=== PATIENT | female | born 1980 | race Native Hawaiian/Other Pacific Islander ===

== ENCOUNTER 2020-12-22 08:50 | Outpatient (CLI) | payer BC | END 2020-12-22 19:21 | disposition home or self-care (01) | LOC: RAD 08:50 | PROVIDERS: ATTEND Nurse Practitioner Family | DX: M79.605 Pain in left leg (principal) ==

== ENCOUNTER 2022-08-29 08:19 | Outpatient (CLI) | payer BC | END 2022-08-29 18:56 | disposition home or self-care (01) | LOC: US 08:19 | PROVIDERS: ATTEND Nurse Practitioner Family | DX: E78.49 Other hyperlipidemia (principal); R53.83 Other fatigue; R74.8 Abnormal levels of other serum enzymes ==

== ENCOUNTER 2022-11-22 10:29 | Outpatient (CLI) | payer BC | END 2022-11-22 19:02 | disposition home or self-care (01) | LOC: US 10:29 | PROVIDERS: ATTEND Nurse Practitioner Family | DX: M79.669 Pain in unspecified lower leg (principal) ==